=== PATIENT | male | born 1965 | race Caucasian/White ===

== ENCOUNTER 2016-11-04 14:11 | Inpatient (IN) | payer OTHER ==
[~2016-11-04] VITALS: Ht 180.3 cm; Wt 89.0 kg
[~2016-11-04 14:11] MED LIST: None per pt
[2016-11-04] MEDS ORDERED: SODIUM CHLORIDE FLUSH 10ML SYR IVF ONE (14:30)
[2016-11-04] MEDS ORDERED: ASPIRIN 81 MG TABLET CHEW PO ONE (14:30)
[2016-11-04] MEDS ORDERED: ASPIRIN 81 MG TABLET CHEW ONE (14:38)
[2016-11-04 14:45] LABS: BLOOD UREA NITROGEN 17 mg/dL (7-18)
[2016-11-04 14:52] LABS: IS PT STATUS REG ER OR PRE ER? YES
[2016-11-04] MEDS ORDERED: DILT30TA27 PO (15:44)
[2016-11-04] MEDS ORDERED: LORazepam 2 MG/ML, 1ML IVPush PRN (17:00)
[2016-11-04] MEDS ORDERED: ONDANSETRON 2MG/ML, 2ML IVP PRN (17:00)
[2016-11-04] MEDS ORDERED: HYDROcodone/APAP 5/325 TABLET PO PRN (17:00)
[2016-11-04] MEDS ORDERED: MORPHINE SULFATE 4 MG/ML, 1ML IVPush PRN (17:00)
[2016-11-04 17:39] LABS: IS PT STATUS REG ER OR PRE ER? YES
[2016-11-04] MEDS ORDERED: SODIUM CHLORIDE 0.9% 1,000 ML IV ONE (17:42)
[2016-11-04 20:00] VITALS: BP 118/72
[2016-11-04] MEDS: FAMOTIDINE 20 MG TABLET PO SCH (22:45)
[2016-11-04 23:11] LABS: IS PT STATUS REG ER OR PRE ER? NO
[2016-11-05] MEDS: SODIUM CHLORIDE 0.9% 1,000 ML IV SCH ×2 (00:11→08:00)
[2016-11-05 02:00] VITALS: BP 105/65
[2016-11-05 05:43] LABS: BLOOD UREA NITROGEN 15 mg/dL (7-18)
[2016-11-05 08:30] VITALS: BP 117/75
[2016-11-05] MEDS: FAMOTIDINE 20 MG TABLET PO SCH (08:58)
[2016-11-05] MEDS ORDERED: DILTIAZEM 30 MG TABLET PO SCH (09:00)
[2016-11-05 10:59] VITALS: BP 114/69
[2016-11-05] MEDS ORDERED: MIDAZOLAM 1 MG/ML, 5ML ONE (13:04)
[2016-11-05] MEDS ORDERED: HEPARIN 1,000 UNITS/ML, 10ML ONE (13:04)
[2016-11-05] MEDS ORDERED: VERAPAMIL 2.5 MG/ML, 2ML ONE (13:04)
[2016-11-05] MEDS ORDERED: FENTANYL PF 100 MCG/2ML ONE (13:04)
[2016-11-05] MEDS ORDERED: BIVALIRUDIN 250 MG ONE (13:04)
[2016-11-05] MEDS ORDERED: LIDOCAINE 2%, 20ML ONE (13:05)
[2016-11-05 14:44] VITALS: BP 114/75
[2016-11-05] MEDS ORDERED: DILT30TA27 PO (15:26)
[2016-11-05] MEDS ORDERED: FAMO20TA7 PO (15:26)
== END 2016-11-05 17:27 | disposition home or self-care (01) | DRG 392 ==
LOC: ED 14:41 → EDIP 15:06 → 5SO 19:47
PROVIDERS: ADMIT Hospitalist; ATTEND Hospitalist
PROC: 4A023N7 Measurement of Cardiac Sampling and Pressure, Left Heart, Percutaneous Approach (ICD-10-PCS; principal; 2016-11-05)
PROC: B2111ZZ Fluoroscopy of Multiple Coronary Arteries using Low Osmolar Contrast (ICD-10-PCS; 2016-11-05)
PROC: B2151ZZ Fluoroscopy of Left Heart using Low Osmolar Contrast (ICD-10-PCS; 2016-11-05)
DX: K21.9 Gastro-esophageal reflux disease without esophagitis (principal); I10 Essential (primary) hypertension; F41.9 Anxiety disorder, unspecified; I49.3 Ventricular premature depolarization; Z80.42 Family history of malignant neoplasm of prostate; Z80.0 Family history of malignant neoplasm of digestive organs; Z79.899 Other long term (current) drug therapy
CPT/HCPCS: 36415; 71010; 80048; 80061; 82040; 83880; 84443; 84484; 85025; 93005; 93458; C1894; J0583; J1644; J2250; J3010; J3490; J7030; Q9967